=== PATIENT | male | born 1975 | race Caucasian/White ===

== ENCOUNTER 2017-12-02 21:10 | Emergency (ER) | payer OTHER ==
[~2017-12-02] VITALS: Ht 182.9 cm; Wt 92.0 kg
[2017-12-02 21:24] VITALS: BP 166/93; PULSE 101; RESP 18; TEMP 98.6; O2SAT 97
[2017-12-03] MEDS ORDERED: IBUPROFEN 800 MG TAB PO ONE
[2017-12-03] MEDS ORDERED: AMOXICILLIN/CLAVULANATE K 875 MG TAB PO ONE
[2017-12-03] MEDS ORDERED: ACETAMINOPHEN/HYDROcodone 325 MG/5 MG TAB PO ONE
[2017-12-03] MEDS ORDERED: AUGM875T3 PO (00:03)
[2017-12-03] MEDS ORDERED: DICL75TA PO (00:03)
--- NOTE | 2017-12-03 00:10 | PD ---
HPI Chief Complaint: Bite or Sting Time Seen by Provider: 23:56 Travel History International Travel<30 days: No Contact w/Intl Traveler<30days: No Traveled to known affect area: No History of Present Illness HPI 42-year-old right-hand dominant white male presents emergency department for evaluation of a dog bite which occurred prior to arrival. He states that he is here at the [facility] for [place] [facility]. 1 of the people that he knew had a [place] Calderon. He states that he went to the dog and the dog bit him in the left arm. He sustained one single bite. He has 2 puncture wounds on the lateral aspect of his arm as well as abrasions underneath. He has had a tetanus shot in the last 5 years. He was concerned over possible infection. Pain is mild. He denies any numbness or tingling. No other injury. The dog is up-to-date with shots. PFSH Past Medical History Narrative Medical GERD, hypercholesterolemia, left hand cat bite with Pasteurella multocida Immunizations Current: Yes Tetanus Vaccination: < 5 Years Influenza Vaccination: No Past Surgical History Narrative Surgical Incision and drainage left hand Social History Alcohol Use: Yes Tobacco Use: No Substance Use: No Allergies-Medications (Allergen,Severity, Reaction): Coded Allergies: No Known Allergies (Unverified , 12/02/17) Review of Systems General / Constitutional: No: Fever Eyes: No: Visual changes HENT: No: Headaches Cardiovascular: No: Chest Pain or Discomfort Respiratory: No: Shortness of Breath Gastrointestinal: No: Abdominal Pain Genitourinary: No: Dysuria Musculoskeletal: Positive: Pain Skin: Positive Rash (Dog bite left arm) Neurologic: No: Weakness Psychiatric: No: Depression Endocrine: No: Polydipsia Hematologic/Lymphatic: No: Easy Bruising Physical Exam Narrative GENERAL: This is a well-nourished, well-developed patient, in no apparent distress. SKIN: No rashes, ecchymoses or lesions. Warm and dry. HEAD: Atraumatic. Normocephalic. EYES: PERRL, EOMI, no discharge or injection. No scleral icterus. EARS: Clear NOSE: Nasal turbinates appear normal. THROAT: Mucosa pink and moist. Airway patent. NECK: Trachea midline. supple, moves head freely. LUNGS: Clear to auscultation. CV: Regular in rhythm. ABDOMEN: Soft nontender. EXT: No clubbing cyanosis or edema. Patient has 2 puncture wounds to the mid lateral left upper arm. There is no obvious joint, tendon or nerve injury. There are tooth abrasions to the volar surface of the arm correlating with a single bite pattern. Data Data Last Documented VS Vital Signs Date Time Temp Pulse Resp B/P (MAP) Pulse Ox O2 Delivery O2 Flow Rate FiO2 12/02/17 21:24 98.6 101 18 166/93 (117) 97 Orders Orders Humerus (Min 2vws) (12/03/17 00:00) Amoxicil-Clavulanate (Augmentin) (12/03/17 00:00) Acetamin-Hydrocod 325-5 Mg (Montrose 5-325 (12/03/17 00:00) Ibuprofen (Motrin) (12/03/17 00:00) MDM Medical Decision Making Medical Screen Exam Complete: Yes Emergency Medical Condition: Yes Medical Record Reviewed: Yes Interpretation(s) Left humerus: Negative for acute foreign body. No bony injury. Differential Diagnosis MDM: High Differential diagnoses: Fracture, sprain, strain, dislocation, contusion, neurovascular injury, dog bite Narrative Course Patient's arm is scrubbed with Hibiclens. Bulky dressing applied. Patient was given Montrose 5 mg, Motrin 800 mg, and Augmentin 875 mg p.o. This is dog bite left arm Diagnosis Primary Impression: Dog bite left arm Patient Instructions: Narcotic given in the ED, General Instructions Additional Instructions: Rest. Elevation. Daily wound care with soap, water, Neosporin. Ice pack tonight. Diclofenac and Augmentin Follow-up with a medical doctor in the next 48-72 hours. Return to the ER if any problems. Med/Other Pt SpecificInfo: Prescription(s) given, Wound Care Scripts Diclofenac Sodium DR (Diclofenac Sodium DR) 75 Mg Tabdr 75 MG PO BID, #14 TAB 0 Refills Prov: Tom Padilla MD 12/03/17 Amoxicillin-Clavulanate (Augmentin) 875-125 Mg Tab 1 TAB PO BID for Infection for 7 Days, #14 TAB 0 Refills Prov: Tom Padilla MD 12/03/17 Disposition: 01 DISCHARGE HOME Condition: Stable Gerald Armenta December 03, 2017 00:10
--- NOTE | 2017-12-03 00:43 | RADRPT ---
EXAM DATE: 12/03/2017 12:22 AM EDT AGE/SEX: 42 years / Male INDICATIONS: Trauma. Patient was bitten by a dog. CLINICAL DATA: This is the patient's initial encounter. Patient reports that signs and symptoms have been present for 1 day and indicates a pain score of 8/10. MEDICAL/SURGICAL HISTORY: None. None. COMPARISON: No prior [facility] exams available for comparison. FINDINGS: The bone ejection appear intact. There appears to be soft tissue injury/laceration at the distal late ral upper arm seen on the AP view. On the lateral view there are 2 cylindrical density seen over the mid upper arm. These are not reproduced on the other view. These may represent something on the patie nt artifact. CONCLUSION: No acute bony injury is seen. There is evidence of soft tissue injury at the distal lateral upper arm . Electronically signed by: Uvaldo Mckeon MD 12/03/2017 12:42 AM EDT
== END 2017-12-03 00:49 | disposition home or self-care (01) ==
LOC: NEPD 21:10
DX: S41.152A Open bite of left upper arm, initial encounter (principal); K21.9 Gastro-esophageal reflux disease without esophagitis; E78.00 Pure hypercholesterolemia, unspecified; W54.0XXA Bitten by dog, initial encounter
CPT/HCPCS: 73060; 99283